=== PATIENT | female | born 1975 | race African-American/Black ===

== ENCOUNTER 2024-01-22 04:10 | Day surgery (SDC) | payer OTHER ==
[2024-01-22 06:54] VITALS: BMI 24.1
[2024-01-22 07:49] LABS: INR 1.05 (0.83-1.09); PROTHROMBIN TIME (PATIENT) 12.1 SEC (9.7-13.0)
[2024-01-22] MEDS ORDERED: PROPOFOL 20 ML ONE ×2 (08:36→10:01)
[2024-01-22] MEDS ORDERED: FENTANYL CITRATE/PF 50 MCG/ML VIAL ONE (08:36)
[2024-01-22] MEDS ORDERED: MIDAZOLAM HCL 2 MG/2 ML SINGLE DOSE VIAL ONE (08:37)
[2024-01-22] MEDS ORDERED: CEFAZOLIN SODIUM 2 GM in DEXTROSE 5%-WATER 100 ML IVPB ONE (09:00)
[2024-01-22] MEDS ORDERED: ceFAZolin SODIUM 1 GM VIAL ONE (09:09)
[2024-01-22] MEDS: ceFAZolin SODIUM 1 GM VIAL IVPB ONE (09:17)
[2024-01-22] MEDS ORDERED: ONDANSETRON 4 MG/2 ML VIAL IVPUSH PRN (09:49)
[2024-01-22] MEDS ORDERED: oxyCODONE HCL 5 MG TABLET PO PRN ×3 (09:49→22:31)
[2024-01-22] MEDS ORDERED: LACTATED RINGERS SOLUTION 1,000 ML IV SCH (10:00)
[2024-01-22] MEDS ORDERED: ACETAMINOPHEN 325 MG TABLET (FP) PO PRN (10:29)
[2024-01-22] MEDS ORDERED: IBUPROFEN 800 MG/8 ML IJ IVPB PRN (10:29)
[2024-01-22] MEDS ORDERED: IBUPROFEN 600 MG TABLET (FP) PO PRN (10:29)
[2024-01-22 10:34] VITALS: RESP 16
[2024-01-22 12:46] VITALS: BP 117/75; PULSE 60; TEMP 98.3
== END 2024-01-22 12:45 | disposition home or self-care (01) ==
LOC: JASU-SURG 04:10
PROVIDERS: ATTEND Obstetrics & Gynecology
PROC: 0UBC8ZX Excision of Cervix, Via Natural or Artificial Opening Endoscopic, Diagnostic (ICD-10-PCS; principal; 2024-01-22 09:00)
DX: D06.9 Carcinoma in situ of cervix, unspecified (principal); N84.0 Polyp of corpus uteri
CPT/HCPCS: 36415; 85610; 88305-TC; 88307-TC; 88341-TC; 88342-TC; 94760; J0131